=== PATIENT | female | born 1990 | race Caucasian/White ===

== ENCOUNTER → 2020-04-04 13:14 | Outpatient (CLI) | payer OTHER, SELFPAY ==
--- NOTE | ~2020-04-04 | US_ITS ---
EXAMINATION: US OB <=14 wk fetus w TV DATE: 04/04/2020 13:48 INDICATION: Encounter for supervision of normal during first trimester TECHNIQUE: Real-time pelvic ultrasound utilizing both a transvaginal and transabdominal probe was pe rformed. The interpreting radiologist was not present for the study. COMPARISON: None. FINDINGS: The retroverted uterus measures 9.9 x 7.1 x 7.3 cm. There is an intrauterine gestational sac. A yolk sac and pole are identified. The crown rump length measures 3.5 cm, which correlates with an e stimated gestational age of 10 weeks and 3 days. heart motion is identified measuring 160 beats per minute (bpm) by M-mode Doppler. The right ovary measures 3.3 x 2.1 x 2.6 cm. 2.1 cm thick-walled centrally anechoic corpus luteum cys t in the right ovary. The left ovary measures 2.8 x 1.7 x 1.7 cm. There is a small amount of free flu id in the pelvis. IMPRESSION: 1. Single living fetus with heart rate of 160 bpm. 2. Gestational age by ultrasound of 10 weeks 3 day(s) +/- 7 day(s) with ultrasound estimated date of delivery ([facility]) of 10/28/2020. 3. Small amount of likely physiologic free fluid in the pelvis. Reviewed, dictated and finalized at location A. IMPRESSION: 1. Single living fetus with heart rate of 160 bpm. 2. Gestational age by ultrasound of 10 weeks 3 day(s) +/- 7 day(s) with ultras ound estimated date of delivery ([facility]) of 10/28/2020. 3. Small amount of likely physiologic free fluid in the pelvis.
== END ==
PROVIDERS: Visit Provider Student in an Organized Health Care Education/Training Program
DX: Z34.91 Encounter for supervision of normal pregnancy, unspecified, first trimester (principal); Z3A.10 10 weeks gestation of pregnancy
CPT/HCPCS: 76801; 76817

== ENCOUNTER 2020-05-08 13:38 | Outpatient (CLI) | payer OTHER, SELFPAY ==
[2020-05-08 14:21] LABS: Basophils Percent Auto 0.4 % (0.2-1.2); Eosinophils Absolute Auto 0.2 K/mm3 (0-0.3); Eosinophils Percent Auto 2.1 % (0-4.4); Hematocrit 36.8 % (37.0-47.0); Hemoglobin 12.5 g/dL (12.0-15.0); Immature Granulocyte Absolute 0.04 K/mm3 (0.00-0.031); Immature Granulocyte Percent A 0.4 % (0-0.5); Lymphocytes Absolute Auto 2.07 K/mm3 (0.9-3.2); Lymphocytes Percent Auto 20.8 % (18.3-44.2); Mean Corpuscular Hemoglobin 29.9 pg (26-34); Mean Platelet Volume 9.9 fl (7.4-10.4); Monocytes Absolute Auto 0.6 K/mm3 (0.1-0.6); Monocytes Percent Auto 6.3 % (2.6-8.5); Platelet Count Result 333 k/mm3 (150-375); Red Blood Count 4.18 M/mm3 (4.2-5.4); Red Cell Distribution Width 12.8 % (11.5-14.5)
[2020-05-08 14:29] LABS: Add Urine Microscopic? YES; Appearance Urine Cloudy (Clear); Bacteria Urine Trace /hpf; Bilirubin Urine Negative (Negative); Blood Urine Negative (Negative); Color Urine Colorless (Yellow); Glucose Urine UA Negative (Negative); Ketones Urine Negative (Negative); Leukocyte Esterase Ur 3+ LEU/UL (NEGATIVE); Mucus Urine Rare /lpf; Nitrate Urine Negative (Negative); Protein Urine Negative (Negative); RBC Urine 0-2 /hpf (0-2); Specific Grav Ur 1.005 (1.001-1.035); Squamous Epithelial Cell Urine Many /hpf (Few); Urobilinogen Urine Negative mg/dL (<2.0)
[2020-05-08 15:48] LABS: Hepatitis B Surface Antigen Negative (Negative); Rubella IgG Antibody 48.7 IU/ML
[2020-05-08 15:59] LABS: Hepatitis C Virus Antibody Negative (Negative)
[2020-05-09 11:13] LABS: Rapid Plasma Reagin Non-Reactive (NonReactive)
[2020-05-14 14:43] LABS: Hemoglobin 12.9 g/dL (11.7-15.5); MCH 30.1 pg (27.0-33.0); MCV 93.5 FL (80.0-100.0); RDW 14.8 % (11.0-15.0); Red Blood Cell Count 4.28 Mill/uL (3.80-5.10)
[2020-05-16 17:11] LABS: CF Result NEGATIVE (NEGATIVE); Ethnicity NG
== END 2020-05-08 13:39 | disposition home or self-care (01) ==
LOC: ANHLAB 13:40
PROVIDERS: PCP Family Medicine; Visit Provider Student in an Organized Health Care Education/Training Program
DX: Z34.90 Encounter for supervision of normal pregnancy, unspecified, unspecified trimester (principal); Z3A.00 Weeks of gestation of pregnancy not specified
CPT/HCPCS: 36415; 81001; 81220; 81243; 82306; 83021; 84443; 85025; 86592; 86762; 86787; 86803; 86850; 86900; 86901; 87086; 87340

== ENCOUNTER 2020-08-20 08:50 | Outpatient (CLI) | payer OTHER, SELFPAY ==
[2020-08-20 10:39] LABS: Basophils Absolute Auto 0.1 K/mm3 (0.0-0.1); Basophils Percent Auto 0.6 % (0.2-1.2); Eosinophils Absolute Auto 0.2 K/mm3 (0-0.3); Eosinophils Percent Auto 2.3 % (0-4.4); Hematocrit 35.3 % (37.0-47.0); Hemoglobin 11.8 g/dL (12.0-15.0); Immature Granulocyte Absolute 0.03 K/mm3 (0.00-0.031); Immature Granulocyte Percent A 0.3 % (0-0.5); Lymphocytes Absolute Auto 1.28 K/mm3 (0.9-3.2); Lymphocytes Percent Auto 12.2 % (18.3-44.2); Mean Corpuscular HGB Conc 33.4 g/dl (32-36); Mean Corpuscular Hemoglobin 30.5 pg (26-34); Mean Corpuscular Volume 91.2 fl (80-100); Mean Platelet Volume 9.9 fl (7.4-10.4); Monocytes Absolute Auto 0.7 K/mm3 (0.1-0.6); Monocytes Percent Auto 6.4 % (2.6-8.5); Neutrophils Absolute Auto 8.2 K/mm3 (1.3-6.7); Neutrophils Percent Auto 78.2 % (45.5-73.1); Platelet Count Result 278 k/mm3 (150-375); Red Blood Count 3.87 M/mm3 (4.2-5.4); Red Cell Distribution Width 11.9 % (11.5-14.5); White Blood Count 10.5 K/mm3 (4.5-10.0)
[2020-08-20 10:53] LABS: Glucose 1 Hour PP 50gm Dose 109 mg/dL
== END 2020-08-20 08:51 | disposition home or self-care (01) ==
PROVIDERS: PCP Family Medicine; Visit Provider Student in an Organized Health Care Education/Training Program
DX: Z34.82 Encounter for supervision of other normal pregnancy, second trimester (principal); Z3A.00 Weeks of gestation of pregnancy not specified
CPT/HCPCS: 36415; 82947; 85025

== ENCOUNTER 2020-09-11 15:10 | Outpatient (CLI) | payer OTHER, SELFPAY ==
[2020-09-11 15:38] LABS: Basophils Percent Auto 0.4 % (0.2-1.2); Eosinophils Absolute Auto 0.2 K/mm3 (0-0.3); Eosinophils Percent Auto 2.1 % (0-4.4); Hematocrit 34.3 % (37.0-47.0); Hemoglobin 11.4 g/dL (12.0-15.0); Immature Granulocyte Absolute 0.03 K/mm3 (0.00-0.031); Immature Granulocyte Percent A 0.3 % (0-0.5); Lymphocytes Percent Auto 17.2 % (18.3-44.2); Mean Corpuscular HGB Conc 33.2 g/dl (32-36); Mean Corpuscular Hemoglobin 29.9 pg (26-34); Monocytes Percent Auto 9.6 % (2.6-8.5); Neutrophils Absolute Auto 6.9 K/mm3 (1.3-6.7); Neutrophils Percent Auto 70.4 % (45.5-73.1); Platelet Count Result 271 k/mm3 (150-375); Red Blood Count 3.81 M/mm3 (4.2-5.4); Red Cell Distribution Width 11.8 % (11.5-14.5); White Blood Count 9.9 K/mm3 (4.5-10.0)
[2020-09-11 16:31] LABS: HIV 1/2 Ab P24 Ag Result Negative (Negative)
[2020-09-11 17:31] LABS: SARS-CoV-2 IgG Reactive (NonReactive)
[2020-09-12 09:32] LABS: Rapid Plasma Reagin Non-Reactive (NonReactive)
== END 2020-09-11 15:11 | disposition home or self-care (01) ==
LOC: ANHLAB 15:11
PROVIDERS: PCP Family Medicine; Visit Provider Student in an Organized Health Care Education/Training Program
DX: Z34.83 Encounter for supervision of other normal pregnancy, third trimester (principal); Z3A.00 Weeks of gestation of pregnancy not specified
CPT/HCPCS: 36415; 85025; 86592; 86703; 86769; G0432

== ENCOUNTER 2020-10-24 11:34 | Inpatient (IN) | payer OTHER, SELFPAY ==
[2020-10-24] VITALS (106 sets, daily range): BP systolic 99–163; BP diastolic 43–104; PULSE 70–132; RESP 16; TEMP 36.6–36.9; O2SAT 96–100; BMI 28.8
--- NOTE | 2020-10-24 11:34 | LDADM ---
This patient, Lennie Blount, was admitted to Labor/Delivery/Recovery 107 on 10/24/20 at 11:34. Plans for labor, pain management and were discussed with patient. Patient/family oriented to hospital policies and general routines including ID bracelet, bed and alarms, visiting hours, pain management, procedures, bathroom and other care routines, personal items, smoking policy, room service/diet and guest tray routines, security routines, and visiting hours. Patient/Family are encouraged to report perceived risks to care and to ask questions if they do not understand what they are told or what they should do. See OBIX for further documentation.
[2020-10-24 15:30] LABS: Basophils Absolute Auto 0.1 K/mm3 (0.0-0.1); Basophils Percent Auto 0.4 % (0.2-1.2); Eosinophils Absolute Auto 0.1 K/mm3 (0-0.3); Eosinophils Percent Auto 0.8 % (0-4.4); Hemoglobin 11.5 g/dL (12.0-15.0); Immature Granulocyte Absolute 0.03 K/mm3 (0.00-0.031); Immature Granulocyte Percent A 0.3 % (0-0.5); Lymphocytes Absolute Auto 1.74 K/mm3 (0.9-3.2); Lymphocytes Percent Auto 15.6 % (18.3-44.2); Mean Corpuscular HGB Conc 33.8 g/dl (32-36); Mean Corpuscular Hemoglobin 29.6 pg (26-34); Mean Corpuscular Volume 87.4 fl (80-100); Mean Platelet Volume 11.1 fl (7.4-10.4); Monocytes Absolute Auto 0.9 K/mm3 (0.1-0.6); Neutrophils Absolute Auto 8.4 K/mm3 (1.3-6.7); Neutrophils Percent Auto 74.9 % (45.5-73.1); Platelet Count Result 246 k/mm3 (150-375); Red Blood Count 3.89 M/mm3 (4.2-5.4); Red Cell Distribution Width 12.5 % (11.5-14.5); White Blood Count 11.2 K/mm3 (4.5-10.0)
[2020-10-24] MEDS: LACTATED RINGERS 1,000 ML 125 ML IV CONT ×2 (15:50→16:25)
--- NOTE | 2020-10-24 16:08 | PM.IMHP ---
H&P: HPI History of Present Illness Date/Time: 10/24/20 16:08 the patient is 29-year-old 001 last menstrual period 01/26/2020 currently 38 weeks and 6 days gestation with an estimated due date of 11/01/20. patient is dated by a last menstrual periods consistent with ultrasound on 04/04/2020 at 10 weeks gestation. Patient presents to Labor and delivery complaints of contractions. Patient reports onset of contractions last night. Patient states the contractions subsided overnight, however, recurred this morning. Patient reports increasing frequency and intensity since then. She denies any leakage of fluid or vaginal bleeding. Reports good movement. On arrival to Labor and delivery, patient's cervical exam was approximately 4 cm dilated. She was observed for few hours during which time she made cervical change to 5 cm dilated and decision was made to admit patient in labor. Chief Complaint: Labor Review of Systems Review of Systems: All systems reviewed & are unremarkable except as noted in HPI and below Constitutional: Constitutional: Reports as per HPI, Reports no additional constitutional complaints, Denies chills, Denies fever(s), Denies headache(s) and Denies night sweats Eyes: Eyes: Reports as per HPI and Reports no additional eye complaints ENT: Reports system reviewed and no additional complaints, except as documented, Reports as per HPI, Reports Normal hearing present and Denies headache(s) Cardiovascular: Cardiovascular: Reports as per HPI, Reports no additional cardiovascular complaints, Denies chest pain and Denies dyspnea Respiratory: Respiratory: Reports as per HPI, Reports no additional respiratory complaints, Denies cough and Denies dyspnea Gastrointestinal: Gastrointestinal: Reports as per HPI, Reports no additional gastrointestinal complaints, Denies abdominal pain, Denies change in bowel habits, Denies change in stool character, Denies nausea and Denies vomiting Genitourinary: Genitourinary: Reports no additional female genitourinary complaints, Reports as per HPI, Denies abnormal vaginal bleeding, Denies genital lesions, Denies hot flashes, Denies dyspareunia, Denies pelvic pain, Denies sexual dysfunction, Denies urinary incontinence, Denies vaginal discharge, Denies vaginal dryness and Denies vaginal odor Musculoskeletal: Musculoskeletal: Reports no additional musculoskeletal complaints and Reports as per HPI Integumentary/Breasts: Skin/Breast: Reports system reviewed and no additional complaints, except as docu, Reports as per HPI, Denies breast pain and Denies nipple discharge Neurologic: Reports system reviewed and no additional complaints, except as documented, Reports as per HPI, Reports Normal hearing present and Denies headache(s) Psychiatric: Psychiatric: Reports no additional psychiatric complaints, Reports as per HPI, Denies anxiety and Denies depression Endocrine: Endocrine: Reports no additional endocrine complaints and Reports as per HPI Hematologic/Lymphatic: Hematologic/Lymphatic: Reports no additional hematologic/lymphatic complaints and Reports as per HPI Allergic/Immunologic: Allergic/Immunologic: Reports no additional allergic/immunologic complaints and Reports as per HPI PMFSH Past Medical History Medical History Environmental allergies Vaginal delivery 04/24/2017 Surgical History Surgical History H/O hernia repair 2000 [place] teeth removed 2014 Family History Family History Father High cholesterol Hypertension Mother Asthma Thalassemia Sibling Mitral valve prolapse Social History Social History Smoking status: Never smoker Second hand tobacco smoke exposure: No Substance use: never Spiritual care concerns: No Meds Home Medications and Allergies
--- NOTE | 2020-10-24 16:30 | WPDANESEPP ---
Anes - Eval Pre Procedure Procedure: labor epidural Date/Time: 10/24/20 16:30 Surgeon: Lyle Preop Diagnosis: labor pain Pre Op Diagnosis: Labor Patient Data Age: 29 Gender: F Height: 1.68 m Weight: 81 kg Last Vital Signs Temp 36.7 C 10/24/20 15:47 Pulse 95 10/24/20 16:15 BP 112/85 10/24/20 16:15 Allergies Allergy/AdvReac Type Severity Reaction Status Date / Time cat dander Allergy Mild Unknown Verified 10/22/20 08:39 dog dander Allergy Mild Unknown Verified 10/22/20 08:39 Home Medications Medication Instructions Recorded Confirmed Type cetirizine 10 mg capsule 10 mg PO DAILY 07/27/19 History prenat.vits,kaleb,apn-drvw-dkjch 1 tablet PO DAILY 10/10/20 10/10/20 History [ #2] Laboratory Tests 10/24/20 10/24/20 15:20 15:20 WBC 11.2 K/mm3 H K/mm3 (4.5-10.0) RBC 3.89 M/mm3 L M/mm3 (4.2-5.4) Hgb 11.5 g/dL L g/dL (12.0-15.0) Hct 34.0 % L % (37.0-47.0) MCV 87.4 fl fl (80-100) MCH 29.6 pg pg (26-34) MCHC 33.8 g/dl g/dl (32-36) RDW 12.5 % % (11.5-14.5) Plt Count 246 k/mm3 k/mm3 (150-375) MPV 11.1 fl H fl (7.4-10.4) Immature Gran % (Auto) 0.3 % % (0-0.5) Neut % (Auto) 74.9 % H % (45.5-73.1) Lymph % (Auto) 15.6 % L % (18.3-44.2) Swift % (Auto) 8.0 % % (2.6-8.5) Eos % (Auto) 0.8 % % (0-4.4) Baso % (Auto) 0.4 % % (0.2-1.2) Lymph # (Auto) 1.74 K/mm3 K/mm3 (0.9-3.2) Swift # (Auto) 0.9 K/mm3 H K/mm3 (0.1-0.6) Eos # (Auto) 0.1 K/mm3 K/mm3 (0-0.3) Baso # (Auto) 0.1 K/mm3 K/mm3 (0.0-0.1) Abs Immat Gran (auto) 0.03 K/mm3 K/mm3 (0.00-0.031) Absolute Neuts (auto) 8.4 K/mm3 H K/mm3 (1.3-6.7) Absolute Nucleated RBC 0.0 K/mm3 K/mm3 (0.0-0.012) Nucleated RBC % 0.0 % % (0.0-0.2) RPR Pending Patient hx anesthesia problems: none Family hx anesthesia problems: none [facility] Past Medical History Medical History Environmental allergies Vaginal delivery 04/24/2017 Surgical History Surgical History H/O hernia repair 2000 [place] teeth removed 2014 Family History Family History Father High cholesterol Hypertension Mother Asthma Thalassemia Sibling Mitral valve prolapse Social History Social History Smoking status: Never smoker Second hand tobacco smoke exposure: No Substance use: never Spiritual care concerns: No Exam Day of Procedure 10/24/20 16:30 Patient weight: normal Heart: regular rate and rhythm Lungs: clear to auscultation and normal air movement Airway: Mallampati scale class II Neurological: alert and oriented
[2020-10-24] MEDS: OXYTOCIN 30 UNITS/NS 500 ML 30 UNITS/500 ML BAG 999 UNITS IV CONT (19:30)
--- NOTE | 2020-10-24 19:33 | P.PCNOB_ITS ---
OB - Delivery Note Procedure Delivery date: 10/24/20 Procedure: Patient is a 29-year-old now who presented to labor and delivery earlier this afternoon on 10/24/2020 at 38 weeks and 6 days gestation with complaints of contractions. Patient reported onset of contractions yesterday during the evening. She reported an increase in frequency and intensity. Patient presented to L&D and was admitted in active labor. Initial cervical exam was approximately 4-5 cm dilated. Artificial rupture membranes was performed at 3:47 p.m. Patient became uncomfortable and requested an epidural for pain management which was placed without difficulty. Patient was allowed to continue to labor on her own. She progressed to fully dilated at 6:47 p.m. Patient was prepped and draped for delivery. At 7:10 p.m., patient delivered infant head atraumatically without difficulty in TIFFANY presentation. A compound presentation was noted as a hand delivered along the side face. Occiput restituted to maternal right side. With subsequent push, the infant's neck, shoulders, and rest of body were delivered without difficulty. 's nose and mouth were suctioned with bulb suction. The was crying spontaneously. Delayed cord clamping was performed for approximately 45 seconds. The cord was clamped and cut and the infant was placed on maternal abdomen were care resumed by waiting nursing staff. The infant voided spontaneously. The umbilical cord was noted to be short and a very short segment of cord was collected for cord gases. Cord blood was also collected. The placenta was delivered spontaneously and intact. Uterine fundus was noted to be firm with massage. On inspection, a periurethral laceration was noted extending towards the clitoral region. A first-degree perineal laceration was also noted. These lacerations were repaired with 2-0 Vicryl in the usual fashion. Excellent hemostasis was achieved. Estimated blood loss for entire delivery was 200 cc. The was a live-born female , Apgars 9 and 9, weighing 7 lb 4 oz. Both mother and baby doing well at end of delivery. Delivery augmentation: rupture of membranes Delivery monitor: external FHT and external uterine Route of delivery: Laceration Description: Periurethral and Perineal - 1st Degree Delivery repair: vicryl (2-0) Specimen: Yes (cord blood and cord gases) Quantitative Blood Loss (ml): 200 Anesthesia type: Epidural Disposition: floor Complications: No immediate complications [place] Baby Date of : 10/24/20 Time of : 19:10 Weeks of gestation at delivery: 38 (38.6) Infant gender: Female Weight (pounds): 7 Weight (ounces): 4 presentation: compound position: Right Occiput Anterior Placenta delivery description: Spontaneous cord vessel description: 3 Vessels, Clamped/Cut and Delayed Cord Clamping score one minute: 9 score five minutes: 9
[2020-10-24] MEDS: OXYTOCIN 30 UNITS/NS 500 ML 30 UNITS/500 ML BAG 125 UNITS IV CONT (19:56)
[2020-10-24] MEDS: BENZOCAINE 20% AER SPR (*SP) 56 GM CAN 1 SPRAY TOPICAL (21:40)
[2020-10-24] MEDS: WITCH HAZEL 40 PADS 1 PAD TOPICAL (21:40)
--- NOTE | 2020-10-24 21:52 | OBPPTRN ---
Patient transferred to post room #291 via wheelchair. Support person present. Oriented to unit, room, information board, rooming in, admission packet and security measures. Patient verbalizes understanding.
[2020-10-25 02:00] VITALS: BP 134/86; PULSE 88; RESP 16; TEMP 36.9; O2SAT 98
[2020-10-25] MEDS: IBUPROFEN 600 MG TABLET PO ×2 (02:21→16:22)
[2020-10-25 05:28] LABS: Hematocrit 31.9 % (37.0-47.0); Hemoglobin 10.4 g/dL (12.0-15.0)
[2020-10-25 08:00] VITALS: BP 131/82; PULSE 89; RESP 18; TEMP 37
--- NOTE | 2020-10-25 10:14 | PM.OBPNVD ---
OB - PN: Subj Subjective Date/time seen: 10/25/20 10:14 Patient comments: pain well controlled, tolerating diet and flatus present baby status: doing well and nursing well [place] feeding status: exclusively breast feeding Narrative: Pain well controlled Tolerating regular diet Ambulating and urinating without difficulty Lochia like her menses OB - PN: Obj Data Labs CBC & Chem 7: 10/25/20 05:06 Labs: Laboratory Results - last 24 hr 10/24/20 10/24/20 10/25/20 15:20 15:20 05:06 WBC 11.2 H RBC 3.89 L Hgb 11.5 L 10.4 L Hct 34.0 L 31.9 L MCV 87.4 MCH 29.6 MCHC 33.8 RDW 12.5 Plt Count 246 MPV 11.1 H Immature Gran % (Auto) 0.3 Neut % (Auto) 74.9 H Lymph % (Auto) 15.6 L Parker % (Auto) 8.0 Eos % (Auto) 0.8 Baso % (Auto) 0.4 Lymph # (Auto) 1.74 Parker # (Auto) 0.9 H Eos # (Auto) 0.1 Baso # (Auto) 0.1 Abs Immat Gran (auto) 0.03 Absolute Neuts (auto) 8.4 H Absolute Nucleated RBC 0.0 Nucleated RBC % 0.0 Blood Type A Positive Antibody Screen Negative OB - PN A/P Plan day: 1 Plan: routine care Comments: Encourage ambulation BF instructed Anticipate D/C tomorrow Time Spent With Patient Time: Total time spent is greater than 50% in coordination of care (as documented) at patient's floor/unit and/or counseling patient: Time with patient: 15 - 25 minutes Review of Systems Constitutional: Constitutional: Reports as per HPI, Denies chills and Denies fever(s) Eyes: Eyes: Reports as per HPI, Denies blind spots and Denies blurry vision ENT: Reports Normal hearing present Cardiovascular: Cardiovascular: Reports as per HPI, Denies chest pain, Denies lightheadedness and Denies dyspnea Respiratory: Respiratory: Reports as per HPI, Denies cough and Denies dyspnea Gastrointestinal: Gastrointestinal: Reports as per HPI Genitourinary: Genitourinary: Reports no additional female genitourinary complaints Musculoskeletal: Musculoskeletal: Reports no additional musculoskeletal complaints Exam Const: General: cooperative, healthy appearing, comfortable, no acute distress, well developed, alert, awake and Physically active Nutritional Appearance: well nourished Orientation/consciousness: patient oriented x3 Limitations: no limitations Resp: Effort & Inspection: normal respiratory effort and able to speak in complete sentences Auscultation: clear to auscultation bilaterally Cardio: Rate: regular rate Rhythm: regular rhythm GI: Inspection: normal to inspection GI Palp: Yes Soft to palpation, No Tenderness to palpation present (GI) and Yes Other GI palpation findings present (Fundus firm below umbilicus) Auscultation: normal bowel sounds Rectal Exam: deferred
--- NOTE | 2020-10-25 10:23 | WPDANLDPN2 ---
Anes-Prog Note L&D Date/Time: 10/25/20 10:23 Comfortable throughout: labor and delivery Neuraxial method: epidural Epidural/Spinal procedure site: clean & non-tender Neuro status: Neuro function grossly intact. Cardiovascular status: normal Respiratory status: normal Airway patency: baseline Mental status: baseline Post-Op hydration status: normal Vital Signs: Last Vital Signs Temp 36.9 C 10/25/20 02:00 Pulse 88 10/25/20 02:00 Resp 16 10/25/20 02:00 BP 134/86 10/25/20 02:00 Pulse Ox 98 10/25/20 02:00 Pain score (VAS): no complaints I/O: Intake & Output 10/24/20 10/25/20 10/25/20 23:59 07:59 15:59 Intake Total 2500 500 Output Total 465 Balance 2035 500 Patient feedback: Patient satisfied with anesthetic care.
[2020-10-25 11:45] VITALS: BP 121/80; PULSE 96; RESP 16; TEMP 36.7
[2020-10-25 16:38] VITALS: BP 121/79; PULSE 83; RESP 16; TEMP 36.8; O2SAT 99
[2020-10-25 20:00] VITALS: BP 118/80; PULSE 87; RESP 16; TEMP 36.8; O2SAT 99
[2020-10-25] MEDS: POLYSACCHARIDE IRON COMPLEX 150 MG CAPSULE PO (20:03)
[2020-10-25] MEDS: MULTIVIT/MIN/PREN/FOL AC/IRON TABLET 1 TAB PO (20:03)
--- NOTE | 2020-10-26 03:00 | PC.NURSE ---
Daylight Savings Time For Daylight Savings Time Beginning in the Spring - Clocks are moved ahead. For [facility], the time of change occurs at 0200 hrs. Time is taken from the remote broadcast engineer. This entry on the patient's chart recognizes the change in time reflected during documentation. Example: 2 entries for vital signs may be charted for 0200 hrs.
[2020-10-26] MEDS: DOCUSATE SODIUM 100 MG CAPSULE PO (07:57)
[2020-10-26] MEDS: IBUPROFEN 600 MG TABLET PO (07:57)
[2020-10-26 08:00] VITALS: BP 122/75; PULSE 82; RESP 18; TEMP 36.6; O2SAT 100
--- NOTE | 2020-10-26 08:33 | PC.NURSE ---
Patient viewed the discharge video Mother & Baby Care, The First Two Weeks . Patient was given the opportunity and encouraged to ask questions. Patient verbalized understanding of information shared and has been given the mother/baby guide for home reference. Pt. will take at home at bedtime.
--- NOTE | 2020-10-26 09:44 | P.PNOB_ITS ---
OB - PN: Subj Subjective Date/time seen: 10/26/20 09:44 Patient comments: pain well controlled, tolerating diet and flatus present baby status: doing well and nursing well Narrative: Pain well controlled. Afebrile Tolerating regular diet Ambulating and urinating without difficulty. Lochia less than her menses. baby girl doing well and BF OB - PN: Obj Data Labs CBC & Chem 7: 10/25/20 05:06 OB - PN A/P Plan day: 2 Plan: discharge home and follow up 6 weeks Comments: BF instructed Time Spent With Patient Time: Total time spent is greater than 50% in coordination of care (as documented) at patient's floor/unit and/or counseling patient: Time with patient: 15 - 25 minutes Review of Systems Constitutional: Constitutional: Reports as per HPI, Denies chills and Denies fever(s) Eyes: Eyes: Reports as per HPI and Denies blurry vision ENT: Reports Normal hearing present Cardiovascular: Cardiovascular: Denies chest pain, Denies syncope, Denies lightheadedness and Denies dyspnea Respiratory: Respiratory: Denies cough and Denies dyspnea Gastrointestinal: Gastrointestinal: Reports as per HPI Genitourinary: Genitourinary: Reports as per HPI Neurologic: Reports Normal hearing present Exam Const: General: cooperative, healthy appearing, comfortable, no acute distress, well developed, alert, awake, Physically active and well groomed O rientation/consciousness: patient oriented x3 Limitations: no limitations HENMT: Ears: hearing grossly normal bilaterally Resp: Effort & Inspection: normal respiratory effort and able to speak in complete sentences Auscultation: clear to auscultation bilaterally Cardio: Rate: regular rate Rhythm: regular rhythm GI: Inspection: normal to inspection GI Palp: No abdominal tenderness, Yes Soft to palpation and Yes Other GI palpation findings present (Fundus firm below umbilicus) Auscultation: normal bowel sounds Rectal Exam: deferred Extrem: General: normal to inspection and no calf tenderness
--- NOTE | 2020-10-26 09:48 | PM.OBDSVD ---
DS: Admitting Diagnosis Admitting Diagnosis Admitting Diagnosis: Labor OB - DS: Summary OB Procedures : None OB Procedures Intrapartum: Spontaneous Vag Delivery OB Procedures: : None Peripartum Data Delivery Method: Natural Vaginal complications: none Status at Discharge Functional status at discharge: independent ambulation Overall status at discharge: patient is progressing back to baseline Time Spent with Patient Time attestation: Total time spent providing and/or coordinating discharge services: Exam Const: General: cooperative, healthy appearing, comfortable, no acute distress, well developed, alert, awake, Physically active and well groomed Nutritional Appearance: well nourished Orientation/consciousness: patient oriented x3 Limitations: no limitations Resp: Effort & Inspection: normal respiratory effort and able to speak in complete sentences Auscultation: clear to auscultation bilaterally Cardio: Rate: regular rate Rhythm: regular rhythm GI: Inspection: normal to inspection GI Palp: No abdominal tenderness, Yes Soft to palpation and Yes Other GI palpation findings present (Fundus firm below umbilicus) Auscultation: normal bowel sounds Rectal Exam: deferred Neuro: General: oriented to person, oriented to place, oriented to time and patient oriented x3 Cognition (Neuro): normal cognition Speech: normal speech Extrem: General: normal to inspection, full ROM and no calf tenderness Psych: Appearance: grossly normal Mental Status: mental status grossly normal Speech and movement: Normal speech and movement present Affect: normal affect Attitude: cooperative Thought process: Normal thought process present Thought content: Yes Normal thought content present Insight: Good insight present (Psych) Judgement: Good judgement present (Psych) Discharge Plan Discharge Attending physician on discharge: Lesa Duke Discharging Clinician: Lesa Duke Patient Disposition: Home, Self-Care Activity: pelvic rest Diet: regular Patient Instructions: Antibiotic Form Stand Alone Forms: General Discharge Information Follow-up/Referrals: Lennie Alvarenga MD [Physician] - Discharge Medications: New ibuprofen 600 mg Tablet 600 mg PO Q6H PRN (Reason: Cramping) Qty: 60 RF: 0 docusate sodium 100 mg Capsule 100 mg PO BID PRN (Reason: Constipation) Qty: 60 RF: 0 Continued Zyrtec 10 mg capsule 10 mg PO DAILY RF: 0 #2 Tablet 1 tablet PO DAILY RF: 0 Date of admission: 10/24/20 11:34 Primary Care Provider: Becka,Umer Vazquez Admitting Provider: Lennie Alvarenga Attending physician on admission: Lennie Alvarenga Condition: Stable
[2020-10-27 07:17] LABS: Rapid Plasma Reagin Non-Reactive (NonReactive)
[2020-10-27 10:47] VITALS: BP 116/76; PULSE 98; RESP 16; TEMP 36.7; O2SAT 98
== END 2020-10-26 12:40 | disposition home or self-care (01) | DRG 807 ==
LOC: ANHLDR 15:21 → ANHOB2 10-26 09:50 → ANHLDR 10-28 09:50 → ANHOB2 10-28 09:50
PROVIDERS: Admitting Provider Student in an Organized Health Care Education/Training Program; PCP Family Medicine; Visit Provider Obstetrics & Gynecology
DX: O32.6XX0 Maternal care for compound presentation, not applicable or unspecified (principal); Z37.0 Single live birth; Z3A.38 38 weeks gestation of pregnancy; O70.0 First degree perineal laceration during delivery
CPT/HCPCS: 36415; 85014; 85018; 85025; 86592; 86850; 86900; 86901; A9270; J2590; J2795; J7120

== ENCOUNTER 2020-10-30 13:12 | Outpatient (RCR) | payer OTHER, SELFPAY ==
--- NOTE | 2020-10-30 13:46 | PC.NURSE ---
IN 1230 OUT 1310 HISTORY: Pt. delivered at [facility] at 38 weeks. had no complications after delivery. Mother had no complications after delivery. Infant is now 6 days/weeks old. appears to be well cared for. Infant has been seen by ICP as scheduled. Infant last seen by ICP tomorrow. Mother reports: nursing well in the hospital, once her milk came began to refuse right breast. Mother wishes: Resolve latch issue. Currently at 6 wets per day and 4 yellow seedy stools per day. weight: 7#4 Last Weight: 6#13 Pre feeding weight: 3387 Post feeding weight: Right breast 3413 after 15 min 3427 L breast 8 min OBSERVATION: Mother attempts to breast in cradle, by lying infant on pillow and dropping nipple and allow infant to self attach. makes a few attempts with a few short suckles and draw back crying. Discussed engorgement and softening before latch to assist infant with latch to draw in quickly and deeply and with quick milk flow. Reviewed positioning/alignment in cross cradle, holding breast in U hold and guided asymmetrical latch on. was able to latch correctly. Infant fought latch for a few suckles, when milk began to flow nursed eagerly, with steady draws and frequent swallowing noted. Reviewed signs of a correct latch, effective nursing and suck swallow ratio. was able to maintain latch without discomfort to mother. Nipple care reviewed, of warm compresses and lanolin. Mother was able to latch independently. PLAN: Mother will follow above feeding plan using techniques for deeper latch. Mother will call with further questions or concerns. Follow up/phone call scheduled for tomorrow.
== END 2020-12-22 07:44 | disposition home or self-care (01) ==
LOC: ANHOBOP 13:12
PROVIDERS: PCP Family Medicine; Visit Provider Pediatrics
DX: Z39.1 Encounter for care and examination of lactating mother (principal)
CPT/HCPCS: 99212; G0463

== ENCOUNTER 2021-03-20 23:56 | Emergency (ER) | payer OTHER, SELFPAY ==
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
[2021-03-21 00:17] VITALS: BP 118/75; PULSE 91; RESP 20; TEMP 36.7; O2SAT 100
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
[2021-03-21] MEDS: CYCLOBENZAPRINE HCL 10 MG TABLET PO (02:34)
[2021-03-21 02:46] VITALS: BP 116/69; PULSE 73; RESP 18; O2SAT 99
== END 2021-03-21 02:48 | disposition home or self-care (01) ==
PROVIDERS: Emergency Provider Emergency Medicine; PCP Family Medicine
DX: S60.221A Contusion of right hand, initial encounter (principal); S39.012A Strain of muscle, fascia and tendon of lower back, initial encounter; V48.5XXA Car driver injured in noncollision transport accident in traffic accident, initial encounter
CPT/HCPCS: 73130; 99283; A9270

== ENCOUNTER 2023-01-18 23:54 | Emergency (ER) | payer OTHER, SELFPAY ==
--- NOTE | ~2023-01-18 | XR_ITS ---
Right elbow Technique: AP, oblique, and lateral views were obtained. Clinical History: Pain Findings: There is displacement of fat pads, consistent with elbow joint effusion. There is a linear, probable nondisplaced intra-articular fracture of the radial head. Osseous alignment remains anatomi c. Impression: Nondisplaced, probable intra-articular fracture of the radial head with associated elbow joint effusi on. Reviewed, dictated and finalized at location M. Impression: Nondisplaced, probable intra-articular fracture of the radial head with associa hamilton elbow joint effusion.
[2023-01-18 23:58] VITALS: BP 126/81; PULSE 77; RESP 16; TEMP 36.7; O2SAT 100
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
[2023-01-19] MEDS: ACETAMINOPHEN 500 MG TABLET 1000 MG PO (01:00)
[2023-01-19] MEDS: Please add drug allergy info to patient profile. 1 EACH XX (01:04)
--- NOTE | 2023-01-19 01:04 | PC.NURSE ---
Ice pack given to pt
[2023-01-19 02:03] VITALS: BP 118/72; PULSE 72; RESP 16; O2SAT 98
== END 2023-01-19 02:05 | disposition home or self-care (01) ==
PROVIDERS: Emergency Provider Physician Assistant
DX: S52.124A Nondisplaced fracture of head of right radius, initial encounter for closed fracture (principal); V00.141A Fall from scooter (nonmotorized), initial encounter
CPT/HCPCS: 73080; 99283; 99284; A4565; A9270

== ENCOUNTER 2024-08-09 12:04 | Outpatient (CLI) | payer OTHER, SELFPAY ==
--- NOTE | ~2024-08-09 | US_ITS ---
Corrected Report Order # Associated 08/09/2024 SLJ This report was recreated on . Original report was signed by Cale Peralta M.D. on 08/09/2024 14:09 HOME CARE PROVIDER. FIRST TRIMESTER ULTRASOUND; US OB <= 14 wk fetus add gest 08/09/2024 12:19 HOME CARE PROVIDER Ordering provider: Addie Shaikh APRN History: . N91.2 - Amenorrhea, unspecified . Comparison: None. FINDINGS: Twin is noted. YOLK SAC: 2 Present pole: Baby A: Measures 2.1 cm. Baby B: Measures 2.2 cm. Baby A: 8 weeks and 5 days.VIKTORIA is March 16, 2025 Baby B: 9 weeks 0 days.VIKTORIA is March 14, 2025. Baby A: Heart rate is 165 bpm Baby B: Heart rate is 1 51 bpm UTERUS: The uterus measures 10.8x 7.2x 6.6 in length which is within normal limits. No myometrial masses. FREE FLUID: None. OVARIES: Normal in size with the right measuring 2.7x 2.4x 2.1 cm and the left is not seen Doppler flow is demonstrated within the right ovary. ADNEXAL MASSES: None. IMPRESSION: Twin . Baby A: 8 weeks and 5 days.VIKTORIA is March 16, 2025 Baby B: 9 weeks 0 days.VIKTORIA is March 14, 2025. Reviewed, dictated and finalized at location A. CARE PROVIDER MTDD
== END 2024-08-09 12:05 | disposition home or self-care (01) ==
LOC: GOSHIMG 12:04
PROVIDERS: PCP Nurse Practitioner Obstetrics & Gynecology; Visit Provider Nurse Practitioner Obstetrics & Gynecology
DX: N91.2 Amenorrhea, unspecified (principal); O30.009 Twin pregnancy, unspecified number of placenta and unspecified number of amniotic sacs, unspecified trimester; Z3A.00 Weeks of gestation of pregnancy not specified
CPT/HCPCS: 76801; 76802; 76817

== ENCOUNTER 2024-12-07 11:06 | Outpatient (CLI) | payer OTHER, SELFPAY ==
--- OUTSIDE RECORDS SUMMARY | 2024-12-07 11:27 | XMS_ITS | Encounter Summary ---
Author Organization [facility] Address [address] [place] [address] Care Team Providers Care Branch Employment Coordinator Name Role Phone Unavailable Primary Care Provider Unavailabl e Encounter Details Date Type Department Care Team (Late Contact Info) Description 12/04/2024 Orders Only [facility] [address] [place] [phone] Carmen Rooney RN Social History Tobacco Use Types Packs/Day Years Used Date Smoking Tobacco: Never Smokeless Tobacco: Never Alcohol Use Standard Drinks/Week Comments Not Currently 0 (1 standard drink = 0.6 oz pur e alcohol) Estimated Date of Delivery Comme nts Yes 03/14/2025 Based on Ultraso und Sex and Gender Information Value Date Recorded Sex Assigned at Not on file Legal Sex Female 8:22 AM CDT Gender Identity Not on file Sexual Orientation Not on file documented as of this encounter Plan of Treatment Upcoming Encounters Date Type Department Care Team (Late Contact Info) Description 12/14/2024 1:00 PM CDT Hospital Encounter [facility] [address] [place] [address] 12/28/2024 1:00 PM CDT Appointment [facility] [address] [place] [phone] 01/11/2025 1:00 PM CDT Appointment [facility] [address] [place] [phone] 01/25/2025 1:00 PM CDT Appointment [facility] [address] [place] [phone] 02/08/2025 1:00 PM CDT Appointment [facility] [address] [place] [phone] 02/22/2025 1:00 PM CDT Appointment [facility] [address] [place] [phone] 03/08/2025 1:00 PM CDT Appointment [facility] [address] [place] [phone] documented as of this encounter Visit Diagnoses Not on filedocumented in this encounter
--- OUTSIDE RECORDS SUMMARY | 2024-12-07 11:27 | XMS_ITS | Clinical Summary ---
Author Organization [facility] [address] [facility] [address] [place] [address] Phone Care Team Providers Care International Marketing Executive Name Role Phone Umer Ubran MD Primary Care Provider [phone] Social History Tobacco Use Types Packs/Day Years Used Date Smoking Tobacco: Never Assessed Comments Unknown Sex and Gender Information Value Date Recorded Sex Assigned at Not on file Legal Sex Female 10:30 AM CDT Gender Identity Not on file Sexual Orientation Not on file Plan of Treatment Health Maintenance Due Date Last Done Comments DTAP/TDAP/TD VACCINES (1 - Tdap) 10/30/2007 HEPATITIS B VACCINES (1 of 3 - 19+ 3-dose series) 10/30/2007 HPV/Cotest (21-29) 2009 CERVICAL CANCER SCREENING 2018 HPV/Cotest (30-65) 2018 PAP SMEAR 2018 INFLUENZA VACCINE (#1) 2024 HPV VACCINES Aged Out No longer eligi ble based on patient's age to complete this topic Insurance [employer] PPO [id number] Care Teams International Marketing Executive Relationship Specialty Start Date End Date Umer Urban MD [address] [place] [id number] PCP - General Family Practice 11/24/16
--- OUTSIDE RECORDS SUMMARY | 2024-12-07 11:27 | XMS_ITS | Clinical Summary ---
Author Organization [facility] Address [facility] [place] [address] Care Team Providers Care Junior Underwriter Name Role Phone Unavailable Primary Care Provider Unavailabl e Social History Tobacco Use Types Packs/Day Years Used Date Smoking Tobacco: Never Assessed Comments Unknown Sex and Gender Information Value Date Recorded Sex Assigned at Not on file Legal Sex Female 8:19 PM CDT Gender Identity Not on file Sexual Orientation Not on file Plan of Treatment Health Maintenance Due Date Last Done Comments Annual Physical 10/30/1991 Hepatitis C 2006 DTaP, Tdap and Td Vaccines (1 - Tdap) 10/30/2007 Hepatitis B Vaccines (1 of 3 - 19+ 3-dose series) 10/30/2007 Cervical Cancer Screening Pap Smear (Age 30 to 64) Every 3 Years 05/21/2013 05/21/2010, 05/15/2009, 05/10/2008, Additional history exists Cervical Cancer Screening Pap with HPV Testing (Age 30 to 64) Every 5 Years 2018 09/25/2015, 07/24/2014, 07/11/2013, Additional history exists Cervical Cancer Screening with HPV 2018 COVID-19 Vaccine () 04/15/2024 HPV Vaccines Aged Out No longer eligi ble based on patient's age to complete this topic Meningococcal B Vaccine Aged Out No l onger eligible based on patient's age to complete this topic Meningococcal Vaccine Aged Out No eric caren eligible based on patient's age to complete this topic Pneumococcal Vaccine: Pediatrics (0 to 5 Years) and At-Risk Patients (6 to 49 Years) Aged Out No longer eligible based on patient's age to complete this topic RSV Immunizations Under 20 Months Aged Out No longer eligible based on patient's age to complete this topic Procedures Procedure Name Priority Date/Time Associated Diagnosis Comments OUTSIDE CYTOPATH CERV/VAG INTERPRET (PAP) 09/25/2015 OUTSIDE CYTOPATH CERV/VAG INTERPRET (PAP) (SCAN ORDER) 05/21/2010 from Last 3 Months or Most Recently Relevant to Health Maintenance Results * OUTSIDE CYTOPATH VAG/CERV PAP WITH HPV (09/25/2015) 09/25/2015 Narrative 09/25/2015 Ordered by an unspecified provider. us Documents Scanned SCANNING Final Result * OUTSIDE CYTOPATH CERV/VAG INTERPRET (PAP) (05/21/2010) 05/21/2010 Narrative 05/21/2010 Ordered by an unspecified provider. us Documents Scanned SCANNING Final Result from Last 3 Months or Most Recently Relevant to Health Maintenance
--- OUTSIDE RECORDS SUMMARY | 2024-12-07 11:27 | XMS_ITS | Referral Summary ---
Author Organization [facility] [place] [address] Address [address] [place] [phone] Care Team Providers Care Sas Statistical Programmer Name Role Phone Unknown, Notinfile Primary Care Provider Unavail able Allergies No known active allergies Medications No known medications Active Problems No known active problems Social History Tobacco Use Types Packs/Day Years Used Date Smoking Tobacco: Never Assessed Comments Unknown Sex and Gender Information Value Date Recorded Sex Assigned at Not on file Legal Sex Female 4:25 PM CDT Gender Identity Not on file Sexual Orientation Not on file Last Filed Vital Signs Vital Sign Reading Time Taken Comments Blood Pressure 111/75 12/04/2023 7:11 PM CDT Pulse 56 12/04/2023 7:11 PM CDT Temperature 36.8 C (98.2 F) 12/04/2023 7:11 PM CDT Respiratory Rate 16 12/04/2023 7:11 PM CDT Oxygen Saturation 100% 12/04/2023 7:11 PM CDT Inhaled Oxygen Concentration - - Weight 75.1 kg (165 lb 8 oz) 12/04/2023 7:11 PM CDT Height 167.6 cm (5' 6 ) 12/04/2023 7:11 PM CDT Body Mass Index 26.71 12/04/2023 7:11 PM CDT Plan of Treatment Not on file Insurance [facility] Care Teams Sas Statistical Programmer Relationship Specialty Start Date End Date Unknown, Notinfile PCP - General 12/04/23
--- OUTSIDE RECORDS SUMMARY | 2024-12-07 11:27 | XMS_ITS | Encounter Summary ---
Author Organization [facility] Address [address] [place] [id number] Care Team Providers Care Retail Furniture Sales Name Role Phone Oscar Giang MD Primary Care Provider Unavailable Encounter Details Date Type Department Care Team (Late st Contact Info) Description 06/18/2017 Abstract [place] [address] Oscar Giang MD Social History Tobacco Use Types Packs/Day Years Used Date Smoking Tobacco: Never Assessed Comments Unknown Sex and Gender Information Value Date Recorded Sex Assigned at Not on file Legal Sex Female 8:19 PM CDT Gender Identity Not on file Sexual Orientation Not on file documented as of this encounter Plan of Treatment Not on file documented as of this encounter Visit Diagnoses Not on filedocumented in this encounter Care Teams Retail Furniture Sales Relationship Specialty Start Date End Date Oscar Giang MD PCP - General 08/16/15 documented as of this encounter
--- OUTSIDE RECORDS SUMMARY | 2024-12-07 11:27 | XMS_ITS | Clinical Summary ---
Author Organization [facility] Address [address] [place] [address] Care Team Providers Care Welding Lead Burner Name Role Phone Unavailable Primary Care Provider Unavailabl e Source Comments [facility],non-owned Affiliates and Associated Physician Practices is amultiple site organization consisting of ambulatory clinics and hospital sitesin [place], [place], [place] and [place]. This disclosure is being madepursuant to the Care Everywhere program and may not contain all information available regarding this patient. Last updated 18.[facility] Evalve Allergies No known active allergies Medications * Be aware that medications may not be up to date on this document. Alwaysverify current medications with the patient. Cetirizine HCl (ZYRTEC PO) Active Kgomuzkt-Enn-Em-FA (PRE- PO) Activ e Active Problems Problem Noted Date Diagnosed Date Monochorionic diamniotic twin gestation in secon d trimester 10/03/2024 Antepartum multigravida of advanced maternal age 0210/03/2024 Estimated Date of Delivery Comme nts Yes 03/14/2025 Based on Ultraso und Encounters Date Type Department Care Team Description 12/04/2024 Telephone [facility] [address] [place] [phone] Carmen Rooney, RN Update (Left message letting patient know that she will not be required to have a echocardiogram for her twin gestation per [facility]. ) 12/04/2024 Orders Only [facility] [address] [place] [address] Carmen Rooney RN 11/30/2024 12:53 PM CDT - 11/30/2024 11:59 PM CDT Hospital Encounter [facility] [address] [place], [place] [phone] Johnnie Ansari MD Discharge Disposition: Home or Self Care 11/16/2024 12:42 PM CDT - 11/16/2024 11:59 PM CDT Hospital Encounter [facility] [address] [place] [phone] Johnnie Ansari MD Discharge Disposition: Home or Self Care 11/02/2024 12:46 PM CDT - 11/02/2024 11:59 PM CDT Hospital Encounter [facility] [address] [place] [phone] Blanca Graham MD Discharge Disposition: Home or Self Care 10/19/2024 2:26 PM INSPECTOR AND SORTER - 10/19/2024 11:59 PM INSPECTOR AND SORTER Hospital Encounter [facility] [address] [place] [phone] Johnnie Ansari MD Discharge Disposition: Home or Self Care 10/17/2024 Orders Only [facility] [address] [place] [phone] Carmen Rooney RN 10/03/2024 1:30 PM INSPECTOR AND SORTER - 10/03/2024 11:59 PM INSPECTOR AND S[employer]TER Hospital Encounter [facility] [address] [place] [phone] Nicole Roach MD Discharge Disposition: Home or Self Care 10/03/2024 1:29 PM INSPECTOR AND SORTER Hospital Encounter [facility] [address] [place] [phone] Nicole Roach MD Discharge Disposition: Home or Self Care 09/10/2024 8:11 AM INSPECTOR AND SORTER - 09/10/2024 11:59 PM INSPECTOR AND SORTER Hospital Encounter [facility] [address] [place] [address] Johnnie Ansari MD Discharge Disposition: Home or Self Care from Last 3 Months Social History Tobacco Use Types Packs/Day Years [...] Sign Reading Time Taken Comments Blood Pressure 118/65 10/03/2024 2:00 PM INSPECTOR AND SORTER Pulse 90 10/03/2024 2:00 PM INSPECTOR AND SORTER Temperature 36.7 C (98.1 F) 11/11/2017 12:01 PM CDT Respiratory Rate 18 11/11/2017 12:01 PM CDT Oxygen Saturation 98% 11/11/2017 12:01 PM CDT Inhaled Oxygen Concentration - - Weight 80.7 kg (178 lb) 10/03/2024 2:00 PM INSPECTOR AND SORTER Height 167.6 cm (5' 6 ) 10/03/2024 2:00 PM INSPECTOR AND SORTER Body Mass Index 28.73 10/03/2024 2:00 PM INSPECTOR AND SORTER Plan of Treatment Upcoming Encounters Date Type Department Care Team (Late st Contact Info) Description 12/14/2024 1:00 PM CDT Hospital Encounter [facility] [address] [place] [address] 12/28/2024 1:00 PM CDT Appointment [facility] [address] [place] [phone] 01/11/2025 1:00 PM CDT Appointment [facility] [address] [place] [phone] 01/25/2025 1:00 PM CDT Appointment [facility] [address] [place] [address] 02/08/2025 1:00 PM CDT Appointment [facility] [address] [place] [address] 02/22/2025 1:00 PM CDT Appointment [facility] [address] [place] [phone] 03/08/2025 1:00 PM CDT Appointment [facility] [address] [place] [phone] Health Maintenance Due Date Last Done Comments PAP SMEAR 1988 HIV SCREENING 10/30/2003 HEPATITIS C SCREENING 10/25/2006 DTAP/TDAP/TD VACCINES (1 - Tdap) 10/30/2007 HEPATITIS B VACCINE (1 of 3 - 19+ 3-dose series) 10/30/2007 COVID-19 VACCINE (1 - 2023-2 5 season) 2024 DEPRESSION SCREENING 08/15/2024 OB-ONE HOUR GLUCOSE 12/06/2024 OB-TDAP CURRENT 12/13/2024 OB-RHOGAM INJECTION 12/20/2024 INFLUENZA VACCINE (Season Ended) 2025 05/16/20 16 ZOSTER VACCINE (1 of 2) 2038 HIB VACCINE Aged Out No longer eligi ble based on patient's age to complete this topic HPV VACCINE Aged Out No longer eligi ble based on patient's age to complete this topic MENINGOCOCCAL (Group B) VACC INE SHARED DECISION-MAKING Aged Out No longer eligibl e based on patient's age to complete this topic MENINGOCOCCAL GROUPS A/C/Y/W VACCINE Aged Out No longer eligible b ased on patient's age to complete this topic PNEUMOCOCCAL VACCINE Aged Out No long er eligible based on patient's age to complete this topic Respiratory Syncytial Virus (RSV) Vaccine Pt: or over 60 yrs (No Doses Required) Completed Procedures Procedure Name Priority Date/Time Associated Diagnosis Comments SONOGRAM - COMPLETE Routine 11/30/2024 12:51 PM CDT Monochorionic diamniotic twin gestation in second trimester (HCC) Encounter for routine screening for malformation using ultrasound ([facility]) Multigravida of advanced maternal age in second trimester ([facility]) SONOGRAM - COMPLETE Routine 11/16/2024 12:48 PM CDT Monochorionic diamniotic twin gestation in second trimester (HCC) Third (HCC) Encounter for routine screening for malformation using ultrasound (HCC) Multigravida of advanced maternal age in second trimester (HCC) SONOGRAM - COMPLETE Routine 11/02/2024 12:52 PM CDT Twin gestation in first trimester, unspecified multiple gestation type Antepartum multigravida of advanced maternal age Encounter for ultrasound 16 weeks gestation of SONOGRAM - COMPLETE Routine 10/19/2024 2:30 PM INSPECTOR AND SORTER Twin gestation in first trimester, unspecified multiple gestation type Antepartum multigravida of advanced maternal age Encounter for ultrasound 16 weeks gestation of SONOGRAM - COMPLETE Routine 10/03/2024 1:37 PM INSPECTOR AND SORTER Monochorionic diamniotic twin gestation in second trimester Antepartum multigravida of advanced maternal age Encounter for ultrasound 16 weeks gestation of SONOGRAM - COMPLETE Routine 09/10/2024 8:16 AM INSPECTOR AND SORTER Twin gestation in first trimester, unspecified multiple gestation type Third Multigravida of advanced maternal age in first trimester Encounter for routine ultrasound from Last 3 Months Results * SONOGRAM - COMPLETE (11/30/2024 12:51 PM CDT) Only the most recent of6 resultswithin the time period is included. Linked Results Indication ======== MC/DA Twins Twin B: suspected marginal vs velamentous placental cord insertion AMA, no genetic testing Incomplete anatomic survey for Twin A - Rt hand Completed anatomy for Twin B History ====== OB History 3. Para 2 [id number] 1. live 2016. Gest. age 39 w + 0 d. Weight 3,005 g. Sex of child: male. Details: Vaginal delivery 2. live 2020. Gest. age 38 w + 0 d. Weight 3,288 g. Sex of child: female. Details: Vaginal delivery Maternal Assessment Physical Exam Height 168 cm, 5 ft 6 in. Weight 82 kg, 180 lb. Initial weight 80 kg, 177 lb. BMI 29.05 kg/m . Initial BMI 28.57 kg/m . Weight gain 1 kg, 3 lb Method ====== Transabdominal ultrasound. View: Limited by crowding ========= Twin . Number of fetuses: 2. Monochorionic-chalo mniotic Dating ====== Date Details Gest. age VIKTORIA LMP 06/10/2024 24 w + 5 d 03/17/2025 Stated VIKTORIA 25 w + 1 d 03/14/2025 Previous U/S 08/09/2024 GA, GA 9 w + 0 d 25 w + 1 d 03/14/2025 U/S Fetus A 11/30/2024 based upon AC, BPD, Femur, HC 25 w + 1 d 03/14/2025 U/S Fetus B based upon AC, BPD, Femur, HC 24 w + 2 d 03/20/2025 Assigned dating based on ultrasound (GA), selected on 09/10/2024 25 w + 1 d 03/14/2025 Fetus A: General Evaluation Cardiac activity present. FHR 154 bpm. Presentation: cephalic; right at cervix Placenta: Placental site: posterior Umbilical cord: Cord vessels: 3 vessel cord - previously documented. Insertion site: normal insertion - previously documented Amniotic fluid: Amount of AF: normal. MVP 4.8 cm Fetus B: General Evaluation Cardiac activity present. FHR 141 bpm. Presentation: breech left Placenta: Placental site: posterior Umbilical cord: Cord vessels: 3 vessel cord - previously documented. Insertion site: marginal insertion- previously documented Amniotic fluid: Amount of AF: normal. MVP 4.2 cm Fetus A: Biometry BPD 61.7 mm 25w 0d 38% Hadlock HC 232.4 mm 25w 2d 33% Hadlock AC 200.7 mm 24w 5d 27% Hadlock Femur 47.1 mm 25w 5d 54% Hadlock Humerus 44.4 mm 26w 3d 81% Elida HC / AC 1.16 Weight Calculation: EFW 775 g 40% Hadlock EFW (lb,oz) 1 lb 11 oz EFW by Hadlock ([id number]) EFW discordance 5.4 % appropriate Fetus B: Biometry BPD 56.0 mm 23w 1d 1% Hadlock HC 218.4 mm 23w 6d 3% Hadlock AC 201.6 mm 24w 5d 30% Hadlock Femur 46.0 mm 25w 2d 40% Hadlock Humerus 43.2 mm 25w 6d 65% Elida HC / AC 1.08 Weight Calculation: EFW 734 g 26% Hadlock EFW (lb,oz) 1 lb 10 oz EFW by Hadlock ([id number]) EFW discordance 5.4 % appropriate Fetus A: Growth Overview Exam date GA BPD (mm) HC (mm) AC (mm) FL (mm) HL (mm) EFW (g) 10/03/2024 16w 6d 38.3 83% 140.9 69% 116.8 69% 24 60% 22.4 59% 191 74% 10/19/2024 19w 1d 42.9 43% 156.7 18% 138.9 51% 31.7 69% 36.8 >99% 293 62% 11/02/2024 21w 1d 49.3 39% 181.9 18% 167.1 63% 37.8 73% 36.8 93% 445 74% 11/16/2024 23w 1d 56.1 44% 207.8 25% 180.7 34% 42.9 68% 38.7 57% 586 52% 11/30/2024 25w 1d 61.7 38% 232.4 33% 200.7 27% 47.1 54% 44.4 81% 775 40% Fetus B: Growth Overview Exam date GA BPD (mm) HC (mm) AC (mm) FL (mm) HL (mm) EFW (g) 10/03/2024 16w 6d 36.8 68% 131.7 33% 114.4 63% 25.3 76% 22.8 64% 192 75% 10/19/2024 19w 1d 43 45% 158.8 24% 139.5 53% 31 61% 29.8 73% 290 59% 11/02/2024 21w 1d 48.5 29% 180.8 16% 165.6 58% 37.5 69% 36.3 89% 436 68% 11/16/2024 23w 1d 51.9 6% 200.5 8% 179.5 31% 40.8 41% 40.2 78% 541 30% 11/30/2024 25w 1d 56 1% 218.4 3% 201.6 30% 46 40% 43.2 65% 734 26% Fetus A: Anatomy The following structures appear normal: Abdomen Stomach. Kidneys. Bladder. Extremities / Skeleton Right hand. The following structures were documented previously: Head / Neck Cranium. Lateral ventricles. Choroid plexus. Midline falx. Cavum septi pellucidi. Cerebellum. Cisterna magna. Thalami. Nuchal fold. Face Lips. Profile. Nose. Nasal bone. Orbits. Heart / Thorax 4-chamber view. RVOT view. LVOT view. 3-vessel view. 8-hgytys-kddjqjm view. Situs. Aortic arch view. Bicaval view. Ductal arch view. Great vessels. Right lung. Left lung. Diaphragm. Abdomen Cord insertion. Bowel. Genitals. Spine Cervical spine. Thoracic spine. Lumbar spine. Sacral spine. Extremities / Skeleton Arms. Left hand. Legs. Feet. sex: female. Fetus B: Anatomy The following structures appear normal: Abdomen Stomach. Kidneys. Bladder. The following structures were documented previously: Head / Neck Cranium. Lateral ventricles. Choroid plexus. Midline falx. Cavum septi pellucidi. Cerebellum. Cisterna magna. Thalami. Nuchal fold. Face Lips. Profile. Nose. Nasal bone. Orbits. Heart / Thorax 4-chamber view. RVOT view. LVOT view. 3-vessel view. 8-wgsqqw-cjnzice view. Situs. Aortic arch view. Bicaval view. Ductal arch view. Great vessels. Right lung. Left lung. Diaphragm. Abdomen Cord insertion. Bowel. Genitals. Spine Cervical spine. Thoracic spine. Lumbar spine. Sacral spine. Extremities / Skeleton Arms. Hands. Legs. Feet. sex: female. Fetus A: Doppler Mid Cerebral Artery: normal PS 35.27 cm/s PS 1.09 MoM Fetus B: Doppler Mid Cerebral Artery: normal PS 33.81 cm/s PS 1.05 MoM Impression ========= Monochorionic-chalo mniotic twins, live, intrauterine at 25w 1d The size is appropriate for twin A and appropriate for twin B. The amniotic fluid is normal for twin A and normal for twin B. The MCA Doppler is normal for twin A and normal for twin B. No major malformations were seen within the limitations of ultrasound. Twins A's anatomic survey is now complete (right hand visualized). Twin B's anatomic survey was completed previously. Follow-up ======== Follow up ultrasound in 2 weeks for TTTS screening Coding ====== Procedures 52613: US Preg Uterus Follow Up. x2 83473: MCA Doppler. x2 PlayerTakesAll PACS Anatomical Region Laterality Modality Other 11/30/2024 12:5 1 PM CDT us Gianluca Duran MD [facility] ORDERABLES Edited Result - Final from Last 3 Months Insurance [facility] [place] [id number]
--- OUTSIDE RECORDS SUMMARY | 2024-12-07 11:27 | XMS_ITS | Clinical Summary ---
Author Organization [facility] [address] Address [address] [place] [id number] Care Team Providers Care Donor Services Specialist Name Role Phone Unknown, Notinfile Primary Care [...] on file Sexual Orientation Not on file Obstetrics History Last Filed Vital Signs Vital Sign Reading [...] 12/04/2023 7:11 PM CDT Plan of Treatment Health Maintenance Due Date Last Done Comments Cervical Cancer Screening 1988 Depression Screening 1988 Hepatitis C Screening 1988 DTaP/Tdap/Td Vaccine (1 - Tdap) 10/30/1999 Varicella Vaccines (1 of 2 - 13+ 2-dose series) 2001 Hepatitis B Screening 2006 Regular Well Visit/Exam 18-64 2006 Influenza Vaccine (Season Ended) 2025 05/16/20 16 HPV Vaccines Aged Out No longer eligi ble based on patient's age to complete this topic Pneumococcal vaccine <65 Aged Out No longer eligible based on patient's age to complete this topic Insurance [facility] Care Teams Donor Services Specialist Relationship Specialty Start Date End Date Unknown, Notinfile PCP - General 12/04/23
[2024-12-07 12:27] LABS: Hematocrit 34.2 % (37.0-47.0); Hemoglobin 11.2 g/dL (12.0-15.0); Mean Corpuscular HGB Conc 32.7 g/dl (32-36); Mean Corpuscular Hemoglobin 30.5 pg (26-34); Mean Corpuscular Volume 93.2 fl (80-100); Mean Platelet Volume 9.7 fl (7.4-10.4); Platelet Count Result 265 k/mm3 (150-375); Red Blood Count 3.67 M/mm3 (4.2-5.4); Red Cell Distribution Width 13.2 % (11.5-14.5); White Blood Count 10.9 K/mm3 (4.5-10.0)
[2024-12-07 12:39] LABS: Glucose 1 Hour PP 50gm Dose 124 mg/dL
== END 2024-12-07 11:07 | disposition home or self-care (01) ==
LOC: ANHLAB 11:07
PROVIDERS: Visit Provider Nurse Practitioner Family
DX: Z34.92 Encounter for supervision of normal pregnancy, unspecified, second trimester (principal); Z3A.00 Weeks of gestation of pregnancy not specified
CPT/HCPCS: 36415; 82947; 85027

== ENCOUNTER 2025-01-30 13:48 | Outpatient (CLI) | payer OTHER, SELFPAY ==
[2025-01-30 14:09] LABS: Hematocrit 37.5 % (37.0-47.0); Hemoglobin 12.4 g/dL (12.0-15.0); Mean Corpuscular HGB Conc 33.1 g/dl (32-36); Mean Corpuscular Hemoglobin 29.8 pg (26-34); Mean Corpuscular Volume 90.1 fl (80-100); Mean Platelet Volume 10.8 fl (7.4-10.4); Platelet Count Result 250 k/mm3 (150-375); Red Blood Count 4.16 M/mm3 (4.2-5.4); Red Cell Distribution Width 12.5 % (11.5-14.5); White Blood Count 8.2 K/mm3 (4.5-10.0)
[2025-01-30 15:02] LABS: Syphilis IgG/IgM Antibody Non-Reactive (Nonreactive)
[2025-01-30 15:11] LABS: HIV 1/2 Ab P24 Ag Result Negative (Negative)
--- OUTSIDE RECORDS SUMMARY | 2025-01-30 15:28 | XMS_ITS | Clinical Summary ---
Author Organization [facility] Address [facility] [place] [address] Care Team Providers Care Director Prison Name Role Phone Unavailable Primary Care Provider [...] Cancer Screening with HPV 2018 COVID-19 Vaccine ( season) 2024 HPV Vaccines Aged Out No longer eligi [...]
--- OUTSIDE RECORDS SUMMARY | 2025-01-30 15:28 | XMS_ITS | Encounter Summary ---
Author Organization [facility] Address [address] [place] [id number] Care Team Providers Care Homicide Squad Lieutenant Name Role Phone Oscar Giang MD Primary Care Provider Unavailable Encounter Details Date Type Department Care Team (Late st Contact Info) Description 06/18/2017 Abstract [facility] [place] [address] Oscar Giang MD Social History Tobacco Use [...] on filedocumented in this encounter Care Teams Homicide Squad Lieutenant Relationship Specialty Start Date End Date Oscar Giang MD PCP - General 08/16/15 documented as of this encounter
== END 2025-01-30 13:49 | disposition home or self-care (01) ==
PROVIDERS: Visit Provider Obstetrics & Gynecology
DX: Z34.90 Encounter for supervision of normal pregnancy, unspecified, unspecified trimester (principal); Z3A.00 Weeks of gestation of pregnancy not specified
CPT/HCPCS: 36415; 85027; 86593; 86703; G0432